=== PATIENT | female | born 1955 | race Caucasian/White ===

== ENCOUNTER → 2016-07-14 | Outpatient (CLI) | payer BC ==
[~2016-07-14] MED LIST: ATOR20TA59 PO; FEXO180T94 PO; HYDR-4074 PO; IBUP-1724 PO; LISI-621 PO; MULT-1050 PO; POLY17PO6 PO
== END ==
LOC: WC.BC 13:22
DX: Z12.31 Encounter for screening mammogram for malignant neoplasm of breast (principal); N64.59 Other signs and symptoms in breast

== ENCOUNTER 2016-09-07 05:48 | Day surgery (SDC) | payer BC ==
[~2016-09-07] VITALS: Ht 156.2 cm; Wt 74.6 kg
[~2016-09-07 05:48] MED LIST changes: +ASPI-1085 PO; -HYDR-4074 PO; +METF500T4 PO; -POLY17PO6 PO
--- OUTSIDE RECORDS SUMMARY | 2016-09-07 05:53 | XMS REPORT | Continuity of Care Document ---
Author Author [facility] Organization [facility] Address Unknown Phone Unavailable Support Name Relationship Address Phone MURALI GA MD Caregiver [facility] [address] [facility] [address] [place] [phone] KAM SHARMA MD Caregiver [address] [place] [address] [address] [place] [phone] JOJO MARIE Next Of Kin [address] [place] [id number] Insurance Providers Payer Name Policy Number Subscriber Name Relationship [employer]/[facility] [id number] Jojo Marie 01 Spouse Advance Directives Directive Response Recorded Date/Time Ordered Resuscitation Status Full Code 02/26/14 4:04pm Resuscitation Documents on File No 02/26/14 3:10pm Problems No known problems or medical conditions. Medications Medication Dose Route Sig Days/Qty Instructions Order Date Discontinued Date Status Aspirin 81 Mg PO DAILY 01/07/09 Active Multivitamins W-Minerals 1 Cap PO DAILY 10/14/10 Active Fexofenadine Hcl 180 Mg PO DAILY 10/14/10 Active Social History Social History Problem Response Recorded Date/Time Smoking Status Never smoker 02/27/2014 8:28am Chewing Tobacco Status No 02/26/2014 3:07pm Hx Substance Use No 02/26/2014 3:07pm Hx Alcohol Use No 02/26/2014 3:07pm Has the pt used tobacco in the last 12 months No 02/26/2014 3:07pm Hospital Discharge Instructions No hospital discharge instructions. Plan of Care No plan of care. Functional Status No functional status results. Allergies, Adverse Reactions, Alerts Allergen Type Severity Reaction Status Last Updated Sulfa (Sulfonamide Antibiotics) Allergy Mild RASH Active 01/07/09 Immunizations Name Given Type Hx Influenza Vaccination Y FALL 2013 Historical Hx Pneumococcal Vaccination No Historical Hx Influenza Vaccination Y FALL 2013 Historical Vital Signs Acute Vital Signs Vital Response Date/Time Temperature (Fahrenheit) 97.0 deg F (96.8 - 99.1) Temperature (Calculated Celsius) 36.65795 degrees C (36.0 - 37.3) Temperature Source Temporal Pulse Rate (adult) 82 bpm (60 - 100) Respiratory Rate 16 breaths/min (10 - 20) O2 Sat by Pulse Oximetry 96 % (90 - 100) Oxygen Delivery Method Room Air Blood Pressure 145/70 mm Hg Blood Pressure Source Automatic Cuff Height 5 ft 2 in Weight 175 lb Body Mass Index 32.0 kg/m^2 Results Test Source Date Result Interp. Ref. Range Comments Alanine Aminotransferase (ALT/SGPT) July 29, 2013 6:41am 80 U/L H 9-52 Albumin July 29, 2013 6:41am 4.0 G/DL N 3.5-5.0 Albumin/Globulin Ratio July 29, 2013 6:41am 1.4 RATIO N 1.1-2.2 Alkaline Phosphatase July 29, 2013 6:41am 54 U/L N 38-126 Anion Gap July 29, 2013 6:41am 8 MEQ/L N 5-15 Aspartate Amino Transf (AST/SGOT) July 29, 2013 6:41am 43 U/L H 14-36 BUN/Creatinine Ratio July 29, 2013 6:41am 15 RATIO N 6-26 Band Neutrophils # July 29, 2013 6:41am 0.1 T/MM3 - Band Neutrophils % July 29, 2013 6:41am 1.0 % N 0-6 Blood Urea Nitrogen July 29, 2013 6:41am 15.0 MG/DL N 7-17 Calcium Level July 29, 2013 6:41am 9.1 MG/DL N 8.4-10.2 Calculated Osmolality July 29, 2013 6:41am 277 MOSM/KG N 261-280 Carbon Dioxide Level July 29, 2013 6:41am 29 MEQ/L N 22-30 Chloride Level July 29, 2013 6:41am 106 MEQ/L N 98-107 Cholesterol Level July 29, 2013 6:41am 219 MG/DL H 132-199 Cholesterol/HDL Ratio July 29, 2013 6:41am 5.6 RATIO H 0-4.0 Creatinine July 29, 2013 6:41am 1.0 MG/DL N 0.7-1.2 Differential Total Cells Counted October 19, 2010 5:35pm 100 % - CALL RESULTS TO [facility] [phone] Eosinophils # (Manual) July 29, 2013 6:41am 0.2 T/MM3 N 0-0.5 Eosinophils % (Manual) July 29, 2013 6:41am 4.0 % N 0-4 Globulin July 29, 2013 6:41am 2.8 G/DL N 2.4-3.6 Glucose Level July 29, 2013 6:41am 118 MG/DL H 65-110 Hematocrit July 29, 2013 6:41am 42.6 % N 36-46 Hemoglobin July 29, 2013 6:41am 14.2 GM/DL N 12-16 LDL Cholesterol, Calculated July 29, 2013 6:41am 134.8 N 66-159 Lymphocytes # (Manual) July 29, 2013 6:41am 2.4 T/MM3 N 1-4.8 Lymphocytes % (Manual) July 29, 2013 6:41am 46.0 % H 23-45 Mean Corpuscular Hemoglobin July 29, 2013 6:41am 29.7 UUG N 26-34 Mean Corpuscular Hemoglobin Concent July 29, 2013 6:41am 33.3 GM/DL N 31-37 Mean Corpuscular Volume July 29, 2013 6:41am 89.1 UM3 N 80-100 Mean Platelet Volume July 29, 2013 6:41am 9.8 UM3 N 9.4-12.4 Monocytes # (Manual) July 29, 2013 6:41am 0.2 T/MM3 N 0-0.8 Monocytes % (Manual) July 29, 2013 6:41am 4.0 % N 0-9.0 Neutrophils # (Manual) July 29, 2013 6:41am 2.2 T/MM3 N 1.8-7.7 Neutrophils % (Manual) July 29, 2013 6:41am 42.0 % N 33-66 Platelet Count July 29, 2013 6:41am 220 T/MM3 N 130-400 Potassium Level July 29, 2013 6:41am 4.1 MEQ/L N 3.6-5 RDW Standard Deviation July 29, 2013 6:41am 41.2 FL N 36.9-50.2 Red Blood Count July 29, 2013 6:41am 4.78 M/MM3 N 4.00-5.20 Sodium Level July 29, 2013 6:41am 143 MEQ/L N 134-144 Total Bilirubin July 29, 2013 6:41am 0.50 MG/DL N 0.20-1.30 Total Protein July 29, 2013 6:41am 6.8 G/DL N 6.3-8.2 Triglycerides Level July 29, 2013 6:41am 226 MG/DL H 35-135 Urine Bacteria July 29, 2013 6:41am None seen - Urine Bilirubin July 29, 2013 6:41am Negative - Urine Blood July 29, 2013 6:41am Negative - Urine Collection Type July 29, 2013 6:41am Cleancatch-midstream - Urine Color July 29, 2013 6:41am Yellow - Urine Glucose (UA) July 29, 2013 6:41am Negative - Urine Ketones July 29, 2013 6:41am Negative - Urine Leukocyte Esterase July 29, 2013 6:41am Negative - Urine Nitrite July 29, 2013 6:41am Negative - Urine Protein July 29, 2013 6:41am Negative - Urine RBC July 29, 2013 6:41am None seen /HPF - Urine Specific [place] July 29, 2013 6:41am 1.010 L - Urine Squamous Epithelial Cells July 29, 2013 6:41am 0-5 - Urine Turbidity July 29, 2013 6:41am Clear - Urine Urobilinogen July 29, 2013 6:41am 0.2 EU/DL - Urine WBC July 29, 2013 6:41am 0-1 /HPF - Urine pH July 29, 2013 6:41am 6.0 - VLDL Cholesterol July 29, 2013 6:41am 45.2 MG/DL H 0-28 White Blood Count July 29, 2013 6:41am 5.2 T/MM3 N 4.5-11.0 Chemistry Specimen Hemolysis July 29, 2013 6:41am < 15 0-25 0-25: No Hemolysis.26-70: Slight Hemolysis - can falsely elevate K and Urine Protein. 71-285: Moderate Hemolysis - can falsely elevate K, Troponin I, CA 19-9, PTH, CSF GLucose, and Urine Protein, and can falsely decrease Phenytoin. 286-999: Gross Hemolysis - can falsely elevate K, Troponin I, CA 19-9, PTH, CSF Glucose, and Urine Protine, and can falsely decrease Phenytoin. Recommend specimen recollection. Lab Scanned Report July 29, 2013 11:56am LAB TEST FORM REQUEST [id number] - EKG January 08, 2009 8:44am Complete - HDL Cholesterol Direct July 29, 2013 6:41am 39 MG/DL L 40-60 Turbidity July 29, 2013 6:41am < 20 0-20 Reactive Lymphocytes % July 29, 2013 6:41am 3.0 % H 0-0 Glomerular Filtration Rate Calc July 29, 2013 6:41am 57 - Reactive Lymphocytes # July 29, 2013 6:41am 0.2 T/MM3 H 0-0 Icterus Index July 29, 2013 6:41am < 2 0-7 Procedures Procedure Status Date Provider(s) Colonoscopy with polypectomy and biopsy completed 02/27/14 MURALI GA MD
--- OUTSIDE RECORDS SUMMARY | 2016-09-07 05:53 | XMS REPORT | Continuity of Care Document ---
Author Author [facility] Organization [facility] Address Unknown Phone Unavailable Support Name Relationship Address Phone HELEN LOZOYA MD Caregiver [address] [facility] [address] [address] [place] [address] Unavailable JOJO ALVAREZ MD Caregiver [address] [facility] [facility] [address] [place] [address] Unavailable JOJO MARIE Next Of Kin [address] [place] [address] Insurance Providers Guarantor Saida Marie Address [address] [place] [id number] Email DENIED/NO TO PORTAL Payer Benefit Management [employer]/[facility] Policy Number [id number] Subscriber's Name Jojo Marie Relationship 01 Spouse Group Number [id number] Effective Date 15 Advance Directives Directive Response Recorded Date/Time Ordered Resuscitation Status Full Code 03/29/16 3:03pm Resuscitation Documents on File UNKNOWN 03/30/16 6:34am DPOA for Healthcare Only Yes 03/30/16 6:34am Living Will Yes 03/30/16 6:34am Problems No problem information available. Medications Current Home Medications Medication Dose Units Route Directions Days Qty Instructions Start Date Atorvastatin Calcium 20 Mg Tablet 1 Tab Oral Daily 09/03/15 Fexofenadine Hcl (Kay Allergy) 180 Mg Tablet 1 Tab Oral Daily as needed for Allery Symptoms 09/03/15 Hydrocodone/Apap 7.5/325 Mg ([place] 7.5-325 Tablet) 7.5-325 Tablet 1-2 Tab Oral Every 5 Hours as needed for Pain 20 Tablet 03/30/16 Ibuprofen 200 Mg Tablet 1-2 Tab Oral Every 4 Hours as needed for 09/03/15 Lisinopril 20 Mg Tablet 1 Tab Oral Daily 09/03/15 Multivit With Calcium,Iron,Min (Women's Daily Multivitamin) 1 Each Tablet 1 Tab Oral Daily 09/03/15 Polyethylene Glycol 3350 (Miralax) 17 Gm Powd.pack 17 G Oral Daily as needed for Constipation 1 Bottle Take 17 Grams (1 capful), by mouth, once a day. 03/30/16 Social History Social History Problem Response Recorded Date/Time Onset Date Status Reason for Hospitalization LEFT CARPAL TUNNEL RELEASE 03/30/2016 7:52am Not Applicable Not Applicable Chewing Tobacco Status No 03/30/2016 6:40am Not Applicable Not Applicable Hx Substance Use No 03/30/2016 6:40am Not Applicable Not Applicable Hx Alcohol Use No 03/30/2016 6:40am Not Applicable Not Applicable Has the pt used tobacco in the last 12 months No 03/30/2016 6:40am Not Applicable Not Applicable Query Response Start Date Stop Date Smoking Status Never smoker Hospital Discharge Instructions Instructions: Care Instructions: I was in the hospital because (patient own words): LEFT CARPAL TUNNEL RELEASE Discharge Diet: Resume your normal diet as tolerated. Discharge Activity: -Exercises are to be performed 2-3 times daily. -DO NOT lift any weight heavier than a coffee cup -Gentle range of motion of the wrist Follow Up Appointments: Follow up as scheduled. Dr. Alvarez on 04/12/16 at 0945 am Pending Lab / Results: No Pending Lab Patient Instructions: DO NOT DRIVE, OPERATE MACHINERY, DRINK ALCOHOL, OR SIGN IMPORTANT PAPERS FOR 24 HOURS OR WHILE TAKING PAIN MEDICATIONS. Expected Signs/Symptoms: There will be pain at the incision site. Expect possible wrap swelling of the fingers. The agata may be loosened if it feels too tight. Call your physician if you are unable to feel or move your fingers. Notify Physician If: You should contact our office if you develop significant drainage from the surgical incision, redness, or fever about 102 degrees. During Business Hours:: Contact the office at [phone] After Business Hours:: After office hours, please call [facility] at [phone] and have the forming press operator page the physician. Pain Management/Treatment: You will be given a prescription for pain medication. You will have post-surgical pain for the first week after surgery. Wound/Incision Care: Keep the dressing clean and dry. On post-op day #4 you may remove the dressing. The incision needs to stay dry until you follow up with your physician. You may shower. DO NOT apply creams or ointments (bacitracin, triple antibiotic) to the incisions. Do not soak the wrist in water or go swimming until your sutures are removed. Condition at time of discharge: Good Plan of Care Discharge Date 03/30/16 8:55am Instructions/Education Provided [facility] Kim Carpal Tunnel Instructions Prescriptions See Medication Section Functional Status Query Response Date Recorded Ability to complete ADL's impeded by Impaired Mobility March 30, 2016 6:34am Allergies, Adverse Reactions, Alerts Allergen Type Severity Reaction Status Last Updated Sulfa (Sulfonamide Antibiotics) Allergy Mild RASH Active 03/30/16 Immunizations Query Response on File Recorded Date/Time Hx Influenza Vaccination Y FEB 2016 03/30/16 6:40am Hx Pneumococcal Vaccination No 03/30/16 6:40am Hx Influenza Vaccination Y FEB 2016 03/30/16 6:40am Vital Signs Acute Vital Signs Vital Response Date/Time Temperature (Fahrenheit) 97.2 deg F (96.8 - 99.1) 03/30/2016 8:25am Temperature (Calculated Celsius) 36.50752 degrees C (36.0 - 37.3) 03/30/2016 8:25am Temperature Source Temporal 03/30/2016 8:25am Pulse Rate (adult) 61 bpm (60 - 100) 03/30/2016 8:25am Respiratory Rate 16 breaths/min (10 - 20) 03/30/2016 8:25am O2 Sat by Pulse Oximetry 96 % (90 - 100) 03/30/2016 7:55am Oxygen Delivery Method Room Air 03/30/2016 8:25am Blood Pressure 141/71 mm Hg 03/30/2016 8:25am Blood Pressure Source Automatic Cuff 03/30/2016 8:25am Height (Feet) 5 feet 03/30/2016 6:27am Height (Inches) 1.00 inches 03/30/2016 6:27am Weight (Kilograms) 80.000 kg 03/30/2016 6:27am Body Mass Index (BMI) 33.3 03/30/2016 6:27am Results No known relevant diagnostic tests, laboratory data and/or discharge summary. Procedures Procedure Status Date Provider(s) Carpal tunnel release Completed 03/30/16 JOJO ALVAREZ MD Encounters Encounter Location Arrival/Admit Date Discharge/Depart Date Attending Provider Departed [facility] 03/30/16 6:20am 03/30/16 8: 55am JOJO ALVAREZ MD
[2016-09-07 06:00] VITALS: BP 138/65; PULSE 75; RESP 13; TEMP 98.2; O2SAT 97; Ht 156.2 cm; Wt 74.6 kg
[2016-09-07 06:39] LABS: ANION GAP 15 MEQ/L (5-15); BUN/CREATININE RATIO 23 RATIO (6-26); CALCIUM 9.4 MG/DL (8.4-10.2); CHLORIDE 109 MEQ/L (98-107); CO2 - CARBON DIOXIDE 24 MEQ/L (22-30); CREATININE 0.9 MG/DL (0.7-1.2); GLOMERULAR FILTRATION RATE 63; GLUCOSE 97 MG/DL (65-110); POTASSIUM 4.2 MEQ/L (3.6-5); SODIUM 148 MEQ/L (134-144)
[2016-09-07] MEDS ORDERED: LR 1,000 ML IV SCH (07:00)
[2016-09-07] MEDS ORDERED: LIDOCAINE 1% (10mg/ml) 2ml SDV INJ ONE (07:00)
--- NOTE | 2016-09-07 07:35 | ANESPREOP ---
Anesthesia Record Date and Time DATE: 09/07/16 TIME: 07:33 Pre-Op Diagnosis Left rigger up thumb Proposed Surgical Procedure LT TRIGGER FINGER THUMB RELEASE Allergies: Coded Allergies: Sulfa (Sulfonamide Antibiotics) (Verified Allergy, Mild, RASH, 09/07/16) Ht/Wt/BMI Height: 5 ' 1.50 " Weight: 74.600 kg BMI: 30.6 kg/m2 Vital Signs Date Time Temp Pulse Resp B/P Pulse Ox O2 Delivery O2 Flow Rate FiO2 09/07/16 06:00 98.2 75 13 138/65 97 Room Air Medications Inpatient Medications Current Medications Medications (Trade) Dose Ordered Sig/Andreas Start Time Stop Time Status Last Admin Dose Admin Lactated Ringer's (Lactated Ringers) 1,000 ml @ 50 mls/hr Q20H 09/07/16 07:00 09/07/16 06:52 50 MLS/HR Aspirin *EC* (Aspirin EC) 81 Mg Tablet.dr, 1 TAB PO DAILY, (Reported) Last Taken: on 09/06/16 06 Atorvastatin Calcium (Atorvastatin Calcium) 20 Mg Tablet, 1 TAB PO DAILY, (Reported) Last Taken: on 09/06/16 06 Fexofenadine HCl (Kay Allergy) 180 Mg Tablet, 1 TAB PO DAILY PRN for ALLERY SYMPTOMS, (Reported) Last Taken: on Unknown Date & Time Ibuprofen (Ibuprofen) 200 Mg Tablet, 1- 2 TAB PO Q4H PRN, (Reported) Last Taken: on Unknown Date & Time Lisinopril (Lisinopril) 20 Mg Tablet, 1 TAB PO DAILY, (Reported) Last Taken: on 09/06/16 06 Metformin HCl (Metformin HCl) 500 Mg Tablet, 1 TAB PO BID, (Reported) Last Taken: on 09/06/161999 Multivit with Calcium,Iron,Min (Women's Daily Multivitamin) 1 Each Tablet, 1 TAB PO DAILY, (Reported) Last Taken: on Unknown Date & Time Currently on Beta Cornelius: No Medical/Surgical History Anesthesia PMH: Reports: *Diabetes (PRE DIABETIC-ON METFORMIN), *Hypertension ( ON MEDICATION), Cancer (BASAL CELL CARCINOMA LEFT CHEEK-FACE), Hyperlipidemia, Obesity, Denies: *Angina, *OH, Anesthesia Reactions, Arthritis, CHF, Clotting Problems, Deep Vein Thrombosis, Glaucoma, Hepatitis, Hiatal Hernia, Malignant Hyperthermia, Reflux, Renal Disease, Rheumatic Fever, Sleep Apnea Smoking Status: Never smoker Has pt. smoked today?: No Use Chewing Tobacco?: No Second Hand Exposure: No Substance Use Type: does not use Alcohol Intake: none HX of Last Menstrual Period: 10 YEARS AGO-POST MENOPAUSAL Past Surgical History Orthopedic Surgeries: Yes - BILAT CARPAL TUNNEL/TRIGGER THUMB RIGHT HAND Abdominal Surgeries: No Genitourinary Surgeries: No Cardiac Surgeries: No Endocrine Surgeries: Reproductive Surgeries: No Neurological Surgeries: No Ear Surgeries: No Nose Surgeries: No Throat Surgeries: No Other Surgeries: No Anesthesia Adverse Reactions: FOUND none Family Hx of Anesthesia Advers: none Hx of Motion Sickness: No Pertinent Findings Laboratory Tests 09/07/16 06:13 EKG Rhythm: Sinus Rhythm Physical Exam Respiratory: Bilat breath sounds equal, Lungs clear Cardiovascular: FOUND Regular rate, rhythm, FOUND No murmur Airway Assessment Mallampati Score: III TMD: 3 Fingerbreadths Neck Extension: Good Overall Assessment: May Be Diff Intubation ASA: 2 Plan Anesthesia Plan: TIVA Discussion Discussed risks/options/alternatives of anesthesia and questions answered. Patient consents. Nursing pain assessment noted. Attestation Statement Prior to the delivery of any anesthetic medication, I examined the patient, developed the plan, obtained the patient's consent and discussed the risk and benefits of the procedure with the patient/guardian. TAMMI WHITTINGTON CRNA September 07, 2016 07:35
[2016-09-07] MEDS ORDERED: PROPOFOL 500mg 50 ML IV ONE (07:42)
[2016-09-07] MEDS ORDERED: BUPIVACAINE 0.25% (2.5mg/ml) INJ 30ml SDV ONE (07:44)
[2016-09-07] MEDS ORDERED: FENTANYL 100mcg/2ml INJECTION ONE (07:44)
[2016-09-07] MEDS ORDERED: LIDOCAINE 1% (10mg/ml) 30ml SDV ONE (07:44)
[2016-09-07] MEDS ORDERED: CEFAZOLIN 1 GRAM INJECTION IV ONE (08:00)
[2016-09-07] MEDS ORDERED: POLY17PO6 PO (08:18)
[2016-09-07] MEDS ORDERED: HYDR-4246 PO (08:18)
[2016-09-07 08:19] VITALS: BP 130/61; PULSE 79; RESP 16; TEMP 97.3; O2SAT 92
--- NOTE | 2016-09-07 08:29 | ANESPO ---
Post-Op Note Date 09/07/16 Time: 08:29 Status Pt Participated in Evaluation: Pt participated in person Vital Signs Date Time Temp Pulse Resp B/P Pulse Ox O2 Delivery O2 Flow Rate FiO2 09/07/16 08:19 97.3 79 16 130/61 92 Room Air Respiratory Function: Airway patent, Regular respirations Cardiovascular Function: Regular pulse Telemetry Pattern: SR Mental Status: Alert/oriented Pain Level Intensity: 0 Unable to Assess Pain Due To: Medicated/Sleeping Hydration: Taking po fluids Complications during Recovery None apparent Follow-Up Instructions Instructions Per Surgeon TAMMI WHITTINGTON CRNA September 07, 2016 08:29
[2016-09-07 08:30] VITALS: BP 137/58; PULSE 64; RESP 21; O2SAT 96
--- NOTE | 2016-09-07 08:32 | PDOPERATE ---
Operative Report Date of Operation 09/07/16 Side: Left Preoperative Diagnosis: other (left trigger thumb) Postoperative Diagnosis Same as preoperative diagnosis. Operation/Procedure: other (left trigger thumb release) Surgeon Jameson Alvarez MD General Neurologist ALBERTINA Owens Complications None. Anesthesia Plan: TIVA Estimated Blood Loss See Anesthesia Record. Fluids Please See Anesthesia Record. Description of Operation Ms. Marie and her left thumb were identified and marked in the the preoperative holding area. She was then brought back to the operating suite and proper anesthesia was administered. She was then positioned supine on the operating table. The left upper extremity was then prepped and draped in my normal sterile fashion. Timeout was performed with all operating room personnel. Local anesthesia was injected into the incision site. The are was then exanguated and the tourniquet inflated to 250 mmHg. A 2 cm incision was made just through the skin in line with the flexion crease. Blunt dissection was then taken down to the flexor shealth, retractors were placed to protect the NV bundles and the A1 vlad was transected in line with the tendon. The skin was closed with 3-0 nylon in a simple interrupted fashion. The tourniquet was let down and a steril dressing placed. She was allowed to awaken and she was able to actively flex and extend all digits. She was then taken to the recovery room under the care of anesthesia. JOJO ALVAREZ MD September 07, 2016 08:32
[2016-09-07 08:40] VITALS: BP 152/63; PULSE 60; RESP 14; O2SAT 99
[2016-09-07 08:50] VITALS: BP 147/69; PULSE 67; RESP 16; O2SAT 99
[2016-09-07 09:00] VITALS: BP 179/85; PULSE 65; RESP 17; O2SAT 99
== END 2016-09-07 09:10 | disposition home or self-care (01) ==
LOC: SCU 05:48
PROVIDERS: ATTEND Orthopaedic Surgery
DX: M65.312 Trigger thumb, left thumb (principal); I10 Essential (primary) hypertension; E78.00 Pure hypercholesterolemia, unspecified; Z79.84 Long term (current) use of oral hypoglycemic drugs; Z79.899 Other long term (current) drug therapy; Z79.82 Long term (current) use of aspirin; Z88.2 Allergy status to sulfonamides; Z86.010 Personal history of colon polyps
CPT/HCPCS: 26055; 36415; 80048; A6222; J0690; J2704; J3010; J7120; S0020